=== PATIENT | female | born 1975 | race African-American/Black ===

== ENCOUNTER 2019-10-14 09:00 | Emergency (ER) | payer OTHER ==
[~2019-10-14] VITALS: Ht 167.6 cm; Wt 90.7 kg
[2019-10-14 09:09] VITALS: BP 148/82
--- NOTE | 2019-10-14 09:20 | NUR ---
SEEN AND EXAMINED BY
--- NOTE | 2019-10-14 09:45 | NUR ---
COVID SWAB OBTAINED AND SENT TO LAB.
== END 2019-10-14 09:47 | disposition home or self-care (01) ==
LOC: ER 09:00
DX: U07.1 COVID-19 (principal); J02.8 Acute pharyngitis due to other specified organisms

== ENCOUNTER 2019-10-15 09:35 | Emergency (ER) | payer OTHER ==
[~2019-10-15] VITALS: Ht 167.6 cm; Wt 91.6 kg
[2019-10-15 09:44] VITALS: BP 142/82
--- NOTE | 2019-10-15 09:50 | NUR ---
SEEN AND EXAMINED BY .
--- NOTE | 2019-10-15 10:01 | NUR ---
Patient discharged to home in stable condition. Written and verbal after care instructions given. Patient verbalizes understanding of instruction.
== END 2019-10-15 10:02 | disposition home or self-care (01) ==
LOC: ER 09:35
DX: U07.1 COVID-19 (principal); J06.9 Acute upper respiratory infection, unspecified; L02.31 Cutaneous abscess of buttock

== ENCOUNTER 2022-09-05 10:33 | Emergency (ER) | payer OTHER ==
[~2022-09-05] VITALS: Ht 167.6 cm; Wt 95.3 kg
[2022-09-05 10:46] VITALS: BP 131/90
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
[2022-09-05] MEDS ORDERED: GRIS500T6 PO (11:23)
--- NOTE | 2022-09-05 11:35 | NUR ---
Patient discharged to home in stable condition. Written and verbal after care instructions given. Patient verbalizes understanding of instruction.
== END 2022-09-05 11:36 | disposition home or self-care (01) ==
LOC: ER 10:38
DX: B35.0 Tinea barbae and tinea capitis (principal)

== ENCOUNTER 2023-12-13 08:57 | Emergency (ER) | payer OTHER ==
[~2023-12-13] VITALS: Ht 162.6 cm; Wt 70.3 kg
[~2023-12-13 08:57] MED LIST: GRIS500T6 PO
[2023-12-13] MEDS ORDERED: CEPH-570 PO (09:21)
[2023-12-13 09:38] LABS: PREGNANCY TEST URINE QUAL NEGATIVE (NEGATIVE)
[2023-12-13 09:39] LABS: ADD URINE CULTURE YES; APPEARANCE,URINE CLEAR (CLEAR); BACTERIA,URINE Few /HPF (None Seen); BILIRUBIN,URINE NEGATIVE (NEGATIVE); BLOOD, URINE NEGATIVE Ery/uL (NEGATIVE); COLOR,URINE YELLOW (YELLOW); KETONES,URINE NEGATIVE (NEGATIVE); LEUKOCYTE ESTERASE ,URINE 2+ (NEGATIVE); NITRITE, URINE NEGATIVE (NEGATIVE); PROTEIN,URINE NEGATIVE (NEGATIVE); RBC,URINE 0-2 /HPF (0-2); SQUAMOUS EPITHELIAL CELL,UR Rare /HPF (None Seen); UGLUCOSE NEGATIVE (NEGATIVE); UROBILINOGEN,URINE 0.2 EU/dL (0.2)
[2023-12-13 10:12] VITALS: BP 124/85; TEMP 98.2; O2SAT 100
== END 2023-12-13 10:13 | disposition home or self-care (01) ==
LOC: ER 09:12
DX: N39.0 Urinary tract infection, site not specified (principal); R30.0 Dysuria; R39.15 Urgency of urination; I10 Essential (primary) hypertension; R35.0 Frequency of micturition; E11.9 Type 2 diabetes mellitus without complications; Z88.1 Allergy status to other antibiotic agents
CPT/HCPCS: 81001; 84703-TC; 87086-TC

== ENCOUNTER 2024-01-19 16:10 | Emergency (ER) | payer OTHER ==
[~2024-01-19] VITALS: Ht 167.6 cm; Wt 68.0 kg
[~2024-01-19 16:10] MED LIST changes: +CEPH-570 PO
[2024-01-19 16:34] VITALS: BP 106/78; TEMP 98.6; O2SAT 99
[2024-01-20] MEDS ORDERED: HYDR30CR99 RC (07:19)
[2024-01-20] MEDS ORDERED: PHEN-704 PO (08:33)
== END 2024-01-19 18:10 | disposition left against medical advice (07) ==
LOC: ER 16:18
DX: R07.89 Other chest pain (principal); K64.9 Unspecified hemorrhoids; Z53.21 Procedure and treatment not carried out due to patient leaving prior to being seen by health care provider

== ENCOUNTER 2024-01-20 06:36 | Emergency (ER) | payer OTHER ==
[~2024-01-20] VITALS: Ht 172.7 cm; Wt 79.4 kg
[2024-01-20] MEDS ORDERED: HYDR30CR99 RC (07:19)
[2024-01-20 08:20] LABS: APPEARANCE,URINE CLEAR (CLEAR); BILIRUBIN,URINE NEGATIVE (NEGATIVE); BLOOD, URINE NEGATIVE Ery/uL (NEGATIVE); COLOR,URINE YELLOW (YELLOW); KETONES,URINE NEGATIVE (NEGATIVE); LEUKOCYTE ESTERASE ,URINE NEGATIVE (NEGATIVE); NITRITE, URINE NEGATIVE (NEGATIVE); PREGNANCY TEST URINE QUAL NEGATIVE (NEGATIVE); PROTEIN,URINE NEGATIVE (NEGATIVE); UGLUCOSE NEGATIVE (NEGATIVE); UROBILINOGEN,URINE 0.2 EU/dL (0.2)
[2024-01-20] MEDS ORDERED: PHEN-704 PO (08:33)
[2024-01-20 08:40] VITALS: BP 128/78; TEMP 98.8; O2SAT 99
== END 2024-01-20 08:38 | disposition home or self-care (01) ==
LOC: ER 06:37
DX: K64.8 Other hemorrhoids (principal); R30.0 Dysuria; I10 Essential (primary) hypertension; E11.9 Type 2 diabetes mellitus without complications; Z88.8 Allergy status to other drugs, medicaments and biological substances
CPT/HCPCS: 84703-TC; 87086-TC

== ENCOUNTER 2024-02-12 11:36 | Emergency (ER) | payer OTHER ==
[~2024-02-12] VITALS: Ht 167.6 cm; Wt 65.8 kg
[~2024-02-12 11:36] MED LIST changes: +HYDR30CR99 RC; +PHEN-704 PO
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
--- NOTE | 2024-02-12 16:30 | NUR ---
Patient discharged to home in stable condition. Written and verbal after care instructions given. Patient verbalizes understanding of instruction.
[2024-02-12 17:24] VITALS: BP 120/72; TEMP 98.8; O2SAT 98
== END 2024-02-12 16:30 | disposition home or self-care (01) ==
LOC: ER 11:42
DX: S90.31XA Contusion of right foot, initial encounter (principal); S13.4XXA Sprain of ligaments of cervical spine, initial encounter; I10 Essential (primary) hypertension; E11.9 Type 2 diabetes mellitus without complications; Z88.8 Allergy status to other drugs, medicaments and biological substances; V43.92XA Unspecified car occupant injured in collision with other type car in traffic accident, initial encounter; Y93.89 Activity, other specified; Y92.488 Other paved roadways as the place of occurrence of the external cause; Y99.8 Other external cause status
CPT/HCPCS: 73630-TC

== ENCOUNTER 2024-07-21 15:31 | Emergency (ER) | payer OTHER ==
[~2024-07-21] VITALS: Ht 167.6 cm; Wt 74.4 kg
[2024-07-21] MEDS ORDERED: ASPIRIN 81 MG TAB.CHEW ONE (16:20)
[2024-07-21] MEDS ORDERED: hydrALAZINE HCL IV 20 MG VIAL ONE (16:20)
[2024-07-21] MEDS ORDERED: ASPIRIN EC 81 MG TABLET.DR PO ONE (16:24)
[2024-07-21 16:35] LABS: BASOPHILS # (AUTO) 0.1 K/uL (0.0-0.2); BASOPHILS % (AUTO) 0.7 % (0.0-2.0); EOSINOPHILS # (AUTO) 0.1 K/uL (0.0-0.7); EOSINOPHILS % (AUTO) 0.7 % (0.0-6.0); HEMATOCRIT 37 % (33-45); HEMOGLOBIN 12.7 g/dL (11.5-14.8); LYMPHOCYTES # (AUTO) 1.9 K/uL (0.8-4.8); LYMPHOCYTES % (AUTO) 21.1 % (20.0-44.0); MEAN CORPUSCULAR HEMOGLOBIN 32 PG (26.0-33.0); MEAN CORPUSCULAR HGB CONC 34 g/dl (31.0-36.0); MEAN CORPUSCULAR VOLUME 92 fL (82-100); MONOCYTES # (AUTO) 0.6 K/uL (0.1-1.30); MONOCYTES % (AUTO) 6.6 % (2.0-12.0); NEUTROPHILS # (AUTO) 6.4 K/uL (1.8-8.9); NEUTROPHILS % (AUTO) 70.9 % (43.0-81.0); PLATELET COUNT (AUTO) 365 K/uL (150-450); RED BLOOD CELL COUNT(AUTO) 4.03 MIL/uL (4.0-5.2); RED CELL DISTRIBUTION WIDTH 13.2 % (11.5-15.0)
[2024-07-21] MEDS: ASPIRIN EC 81 MG TABLET.DR PO ONE (16:45)
[2024-07-21 16:46] LABS: CALCIUM, SERUM 9.2 mg/dL (8.5-10.1); CARBON DIOXIDE 30 mmol/L (21-32); CHLORIDE 105 mmol/L (98-107); CREATININE 0.8 mg/dL (0.6-1.3); GLUCOSE 93 mg/dL (74-106); POTASSIUM 4.1 mmol/L (3.5-5.1); SODIUM SERUM 139 mmol/L (136-145); UREA NITROGEN, BLOOD 16 mg/dL (7-18)
[2024-07-21] MEDS: hydrALAZINE HCL IV 20 MG VIAL IV ONE (17:00)
[2024-07-21 17:01] LABS: INR 1.02 (0.91-1.10); PARTIAL THROMBOPLASTIN TIME 25.9 SEC (24.3-34.3); PROTHROMBIN TIME 10.8 SECS (9.2-11.1)
[2024-07-21 17:47] VITALS: BP 140/85; TEMP 98.2; O2SAT 100
== END 2024-07-21 17:47 | disposition home or self-care (01) ==
LOC: ER 15:35
DX: R07.89 Other chest pain (principal); I10 Essential (primary) hypertension; E11.9 Type 2 diabetes mellitus without complications; Z79.899 Other long term (current) drug therapy; Z88.1 Allergy status to other antibiotic agents
CPT/HCPCS: 99285; 96374; 71045; 93005; 85025; 80048; 36415; 84484; 85730; J0360

== ENCOUNTER 2024-07-22 11:54 | Emergency (ER) | payer OTHER ==
[~2024-07-22] VITALS: Ht 167.6 cm; Wt 72.6 kg
[2024-07-22 12:14] VITALS: BP 124/74; TEMP 98.4
[2024-07-22] MEDS ORDERED: IBUPROFEN 400 MG TABLET ONE (12:49)
[2024-07-22] MEDS: IBUPROFEN 400 MG TABLET PO ONE (12:53)
[2024-07-22 13:47] VITALS: O2SAT 99
== END 2024-07-22 13:48 | disposition home or self-care (01) ==
LOC: ER 12:04
DX: R51.9 Headache, unspecified (principal); R53.83 Other fatigue; E11.9 Type 2 diabetes mellitus without complications; I10 Essential (primary) hypertension; Z88.1 Allergy status to other antibiotic agents; Z20.822 Contact with and (suspected) exposure to COVID-19

== ENCOUNTER → 2024-07-22 | Emergency (ER) | payer OTHER ==
[~2024-07-22] VITALS: Ht 167.6 cm; Wt 72.6 kg
[2024-07-22 17:15] VITALS: BP 154/99; TEMP 98.6; O2SAT 99
== END | disposition left against medical advice (07) ==
LOC: ER 18:02
DX: R07.9 Chest pain, unspecified (principal); R51.9 Headache, unspecified; Z53.21 Procedure and treatment not carried out due to patient leaving prior to being seen by health care provider

== ENCOUNTER 2024-08-30 12:08 | Emergency (ER) | payer OTHER ==
[~2024-08-30] VITALS: Ht 167.6 cm; Wt 81.2 kg
[2024-08-30] MEDS: IV NS 0.9% 1,000 ML BAG IV ONE (12:54)
[2024-08-30 12:56] LABS: BASOPHILS # (AUTO) 0.1 K/uL (0.0-0.2); BASOPHILS % (AUTO) 0.8 % (0.0-2.0); EOSINOPHILS % (AUTO) 0.4 % (0.0-6.0); HEMATOCRIT 39 % (33-45); HEMOGLOBIN 13.6 g/dL (11.5-14.8); LYMPHOCYTES # (AUTO) 1.7 K/uL (0.8-4.8); LYMPHOCYTES % (AUTO) 24.1 % (20.0-44.0); MEAN CORPUSCULAR HEMOGLOBIN 31 PG (26.0-33.0); MEAN CORPUSCULAR HGB CONC 35 g/dl (31.0-36.0); MEAN CORPUSCULAR VOLUME 90 fL (82-100); MONOCYTES # (AUTO) 0.5 K/uL (0.1-1.30); MONOCYTES % (AUTO) 6.8 % (2.0-12.0); NEUTROPHILS # (AUTO) 4.7 K/uL (1.8-8.9); NEUTROPHILS % (AUTO) 67.9 % (43.0-81.0); PLATELET COUNT (AUTO) 316 K/uL (150-450); RED BLOOD CELL COUNT(AUTO) 4.35 MIL/uL (4.0-5.2); RED CELL DISTRIBUTION WIDTH 12.6 % (11.5-15.0)
[2024-08-30 13:15] LABS: CALCIUM, SERUM 9.4 mg/dL (8.5-10.1); CARBON DIOXIDE 26 mmol/L (21-32); CHLORIDE 105 mmol/L (98-107); CREATININE 0.9 mg/dL (0.6-1.3); GLUCOSE 89 mg/dL (74-106); POTASSIUM 4.6 mmol/L (3.5-5.1); SODIUM SERUM 139 mmol/L (136-145); UREA NITROGEN, BLOOD 18 mg/dL (7-18)
[2024-08-30 13:19] LABS: MAGNESIUM 2.1 mg/dL (1.8-2.4); PHOSPHORUS 3.6 mg/dL (2.5-4.9)
[2024-08-30 13:21] LABS: ALCOHOL, BLOOD < 3 mg/dL (0-10)
[2024-08-30 13:43] LABS: PREGNANCY TEST URINE QUAL NEGATIVE (NEGATIVE)
[2024-08-30 13:47] LABS: AMPHETAMINE, URINE NEGATIVE (NEGATIVE); BARBITURATE, URINE NEGATIVE (NEGATIVE); BENZODIAZEPINE, URINE NEGATIVE (NEGATIVE); CANNABINOID, URINE NEGATIVE (NEGATIVE); COCCAINE, URINE NEGATIVE (NEGATIVE); OPIATE, URINE NEGATIVE (NEGATIVE); PHENCYCLIDINE SCREEN,URINE NEGATIVE (NEGATIVE)
[2024-08-30 14:50] VITALS: BP 137/80; TEMP 98.4; O2SAT 99
== END 2024-08-30 14:25 | disposition home or self-care (01) ==
LOC: ER 12:13
DX: R53.83 Other fatigue (principal); R53.1 Weakness; R00.0 Tachycardia, unspecified; I10 Essential (primary) hypertension; E11.9 Type 2 diabetes mellitus without complications; Z88.1 Allergy status to other antibiotic agents; Z79.899 Other long term (current) drug therapy
CPT/HCPCS: 99285; 96360; 93005; 71045; 85025; 80048; 83735; 84100; 84703; 36415; 84443; 84484; 80320; 80307; J7030; G0480

== ENCOUNTER 2024-11-06 05:07 | Emergency (ER) | payer OTHER ==
[~2024-11-06] VITALS: Ht 165.1 cm; Wt 74.8 kg
[~2024-11-06 05:07] MED LIST changes: -FLUO20CA36 PO; -GABA300C PO; -LISI20TA30 PO; -TRAZ-182 PO
[2024-11-06 05:24] VITALS: TEMP 98.5
[2024-11-06 06:25] LABS: BASOPHILS # (AUTO) 0.1 K/uL (0.0-0.2); BASOPHILS % (AUTO) 0.6 % (0.0-2.0); EOSINOPHILS % (AUTO) 0.4 % (0.0-6.0); HEMATOCRIT 41 % (33-45); HEMOGLOBIN 13.5 g/dL (11.5-14.8); LYMPHOCYTES % (AUTO) 19.4 % (20.0-44.0); MEAN CORPUSCULAR HEMOGLOBIN 31 PG (26.0-33.0); MEAN CORPUSCULAR HGB CONC 33 g/dl (31.0-36.0); MEAN CORPUSCULAR VOLUME 94 fL (82-100); MONOCYTES # (AUTO) 0.8 K/uL (0.1-1.30); NEUTROPHILS # (AUTO) 7.4 K/uL (1.8-8.9); NEUTROPHILS % (AUTO) 71.6 % (43.0-81.0); PLATELET COUNT (AUTO) 328 K/uL (150-450); RED BLOOD CELL COUNT(AUTO) 4.37 MIL/uL (4.0-5.2); RED CELL DISTRIBUTION WIDTH 13.6 % (11.5-15.0); WHITE BLOOD COUNT (AUTO) 10.4 K/uL (4.3-11.0)
[2024-11-06 06:31] LABS: CALCIUM, SERUM 9.8 mg/dL (8.5-10.1); CARBON DIOXIDE 23 mmol/L (21-32); CHLORIDE 102 mmol/L (98-107); GLUCOSE 121 mg/dL (74-106); POTASSIUM 3.9 mmol/L (3.5-5.1); SODIUM SERUM 136 mmol/L (136-145); UREA NITROGEN, BLOOD 24 mg/dL (7-18)
[2024-11-06 06:43] LABS: ACETAMINOPHEN 26 ug/ml (10-30); ALANINE AMINOTRANSFERASE 62 U/L (12-78); ALCOHOL, BLOOD < 3 mg/dL (0-10); ALKALINE PHOSPHATASE 55 U/L (46-116); ASPARTATE AMINOTRANSFERASE 50 U/L (15-37); BILIRUBIN,DIRECT 0.3 mg/dL (0.0-0.2); BILIRUBIN,TOTAL 1.4 mg/dL (0.2-1.0); SALICYLATE < 10.0 mg/dL (2.8-20.0); TOTAL PROTEIN, SERUM 8.1 g/dL (6.4-8.2)
[2024-11-06 07:01] LABS: APPEARANCE,URINE CLEAR (CLEAR); BILIRUBIN,URINE NEGATIVE (NEGATIVE); BLOOD, URINE NEGATIVE Ery/uL (NEGATIVE); COLOR,URINE YELLOW (YELLOW); KETONES,URINE TRACE mg/dL (NEGATIVE); LEUKOCYTE ESTERASE ,URINE NEGATIVE (NEGATIVE); NITRITE, URINE NEGATIVE (NEGATIVE); PROTEIN,URINE TRACE mg/dl (NEGATIVE); UGLUCOSE NEGATIVE (NEGATIVE); UROBILINOGEN,URINE 0.2 EU/dL (0.2)
[2024-11-06 07:05] LABS: ADD URINE CULTURE NO; BACTERIA,URINE Few /HPF (None Seen); RBC,URINE 0-2 /HPF (0-2)
[2024-11-06 07:21] LABS: AMPHETAMINE, URINE NEGATIVE (NEGATIVE); BARBITURATE, URINE NEGATIVE (NEGATIVE); BENZODIAZEPINE, URINE NEGATIVE (NEGATIVE); CANNABINOID, URINE NEGATIVE (NEGATIVE); COCCAINE, URINE NEGATIVE (NEGATIVE); OPIATE, URINE NEGATIVE (NEGATIVE); PHENCYCLIDINE SCREEN,URINE NEGATIVE (NEGATIVE)
[2024-11-06] MEDS ORDERED: IBUPROFEN 400 MG TABLET ONE (11:16)
[2024-11-06] MEDS: IBUPROFEN 400 MG TABLET PO ONE (11:19)
[2024-11-06 12:56] VITALS: BP 134/70; O2SAT 99
== END 2024-11-06 12:45 ==
LOC: ER 05:09
DX: R45.851 Suicidal ideations (principal); E11.9 Type 2 diabetes mellitus without complications; R10.2 Pelvic and perineal pain; I10 Essential (primary) hypertension; Z88.1 Allergy status to other antibiotic agents; Z20.822 Contact with and (suspected) exposure to COVID-19
CPT/HCPCS: 36415; 80048-TC; 80076-TC; 81001; 82962-TC; 84702-TC; 85025-TC; G0480

== ENCOUNTER → 2024-11-06 | Emergency (ER) | payer OTHER ==
[~2024-11-06] VITALS: Ht 167.6 cm; Wt 81.6 kg
[~2024-11-06] MED LIST changes: +FLUO20CA36 PO; +GABA300C PO; +LISI20TA30 PO; +TRAZ-182 PO
[2024-11-06 17:27] VITALS: TEMP 98.2
[2024-11-06 18:35] VITALS: BP 130/70; O2SAT 99
== END ==
LOC: ER 17:29
DX: F32.A Depression, unspecified (principal); E11.9 Type 2 diabetes mellitus without complications; I10 Essential (primary) hypertension; Z88.1 Allergy status to other antibiotic agents

== ENCOUNTER 2024-11-10 20:52 | Emergency (ER) | payer OTHER ==
[~2024-11-10] VITALS: Ht 172.7 cm; Wt 65.8 kg
[2024-11-10] MEDS ORDERED: FLUO20CA36 PO (22:00)
[2024-11-10] MEDS ORDERED: LISI20TA30 PO (22:00)
[2024-11-10] MEDS ORDERED: GABA300C PO (22:00)
[2024-11-10] MEDS ORDERED: TRAZ-182 PO (22:00)
[2024-11-10 22:22] LABS: PREGNANCY TEST URINE QUAL NEGATIVE (NEGATIVE)
[2024-11-10] MEDS ORDERED: OLANZAPINE ZYDIS 5 MG TAB.RAPDIS ONE ×2 (22:25→22:33)
[2024-11-10] MEDS: OLANZAPINE ZYDIS 5 MG TAB.RAPDIS SL ONE (22:27)
[2024-11-11 01:14] VITALS: BP 135/88; TEMP 98.5; O2SAT 99
== END 2024-11-11 01:15 | disposition home or self-care (01) ==
LOC: ER 21:27
DX: F22 Delusional disorders (principal); E11.9 Type 2 diabetes mellitus without complications; F43.0 Acute stress reaction; I10 Essential (primary) hypertension; Z88.1 Allergy status to other antibiotic agents; Z79.899 Other long term (current) drug therapy
CPT/HCPCS: 70450-TC; 84703-TC

== ENCOUNTER 2025-05-04 13:04 | Emergency (ER) | payer OTHER ==
[~2025-05-04] VITALS: Ht 167.6 cm; Wt 84.4 kg
[~2025-05-04 13:04] MED LIST changes: +FLUO20CA36 PO; +GABA300C PO; +LISI20TA30 PO; +TRAZ-182 PO
[2025-05-04 13:18] VITALS: TEMP 98.8
--- NOTE | 2025-05-04 13:30 | NUR ---
CAROLA GUTIERREZ AT BEDSIDE
--- NOTE | 2025-05-04 13:55 | NUR ---
Patient discharged to home in stable condition. Written and verbal after care instructions given. Patient verbalizes understanding of instruction.
[2025-05-04 13:57] VITALS: BP 150/84; O2SAT 96
== END 2025-05-04 13:55 | disposition home or self-care (01) ==
LOC: ER 13:07
DX: F32.A Depression, unspecified (principal); R51.9 Headache, unspecified; I10 Essential (primary) hypertension; E11.9 Type 2 diabetes mellitus without complications; Z79.899 Other long term (current) drug therapy; Z88.1 Allergy status to other antibiotic agents

== ENCOUNTER 2025-05-06 08:45 | Emergency (ER) | payer OTHER ==
[~2025-05-06] VITALS: Ht 167.6 cm; Wt 84.4 kg
[2025-05-06 09:08] VITALS: BP 139/90; TEMP 98.1; O2SAT 97
[2025-05-06 10:00] LABS: AMPHETAMINE, URINE NEGATIVE (NEGATIVE); BARBITURATE, URINE NEGATIVE (NEGATIVE); BENZODIAZEPINE, URINE NEGATIVE (NEGATIVE); CANNABINOID, URINE NEGATIVE (NEGATIVE); COCCAINE, URINE NEGATIVE (NEGATIVE); OPIATE, URINE NEGATIVE (NEGATIVE)
[2025-05-06 10:06] LABS: ADD URINE CULTURE NO; APPEARANCE,URINE SLIGHTLY CLOUDY (CLEAR); BLOOD, URINE NEGATIVE Ery/uL (NEGATIVE); LEUKOCYTE ESTERASE ,URINE NEGATIVE (NEGATIVE); NITRITE, URINE NEGATIVE (NEGATIVE); SQUAMOUS EPITHELIAL CELL,UR Few /HPF (None Seen); UGLUCOSE NEGATIVE (NEGATIVE)
[2025-05-06 10:22] LABS: PLATELET COUNT (AUTO) 341 K/uL (150-450); RED BLOOD CELL COUNT(AUTO) 4.43 MIL/uL (4.0-5.2); RED CELL DISTRIBUTION WIDTH 14.0 % (11.5-15.0); WHITE BLOOD COUNT (AUTO) 9.5 K/uL (4.3-11.0)
[2025-05-06 10:43] LABS: CALCIUM, SERUM 9.0 mg/dL (8.5-10.1); CREATININE 0.8 mg/dL (0.6-1.3); SODIUM SERUM 140 mmol/L (136-145); UREA NITROGEN, BLOOD 14 mg/dL (7-18)
[2025-05-06 10:58] LABS: ALCOHOL, BLOOD 4 mg/dL (0-10); ASPARTATE AMINOTRANSFERASE 10 U/L (15-37); TOTAL PROTEIN, SERUM 7.9 g/dL (6.4-8.2)
== END 2025-05-06 10:31 | disposition left against medical advice (07) ==
LOC: ER 08:57
DX: F32.A Depression, unspecified (principal); I10 Essential (primary) hypertension; E11.9 Type 2 diabetes mellitus without complications; Z79.899 Other long term (current) drug therapy; Z88.1 Allergy status to other antibiotic agents
CPT/HCPCS: 36415; 80048-TC; 80076-TC; 81001; 84439-TC; 84443-TC; 85025-TC; G0480

== ENCOUNTER 2025-05-09 00:39 | Emergency (ER) | payer OTHER ==
[~2025-05-09] VITALS: Ht 167.6 cm; Wt 84.4 kg
[2025-05-09 00:45] VITALS: TEMP 98.1
[2025-05-09 01:24] LABS: PLATELET COUNT (AUTO) 388 K/uL (150-450); RED BLOOD CELL COUNT(AUTO) 4.58 MIL/uL (4.0-5.2); RED CELL DISTRIBUTION WIDTH 13.8 % (11.5-15.0); WHITE BLOOD COUNT (AUTO) 12.1 K/uL (4.3-11.0)
[2025-05-09 01:31] LABS: CALCIUM, SERUM 9.5 mg/dL (8.5-10.1); CREATININE 1.0 mg/dL (0.6-1.3); SODIUM SERUM 139 mmol/L (136-145); UREA NITROGEN, BLOOD 21 mg/dL (7-18)
[2025-05-09 01:37] LABS: ALCOHOL, BLOOD < 3 mg/dL (0-10); ASPARTATE AMINOTRANSFERASE 13 U/L (15-37); TOTAL PROTEIN, SERUM 8.3 g/dL (6.4-8.2)
[2025-05-09 02:35] LABS: APPEARANCE,URINE CLEAR (CLEAR); BLOOD, URINE NEGATIVE Ery/uL (NEGATIVE); LEUKOCYTE ESTERASE ,URINE NEGATIVE (NEGATIVE); NITRITE, URINE NEGATIVE (NEGATIVE); UGLUCOSE NEGATIVE (NEGATIVE)
[2025-05-09 02:45] LABS: AMPHETAMINE, URINE NEGATIVE (NEGATIVE); BARBITURATE, URINE NEGATIVE (NEGATIVE); BENZODIAZEPINE, URINE NEGATIVE (NEGATIVE); CANNABINOID, URINE NEGATIVE (NEGATIVE); COCCAINE, URINE NEGATIVE (NEGATIVE); OPIATE, URINE NEGATIVE (NEGATIVE)
[2025-05-09] MEDS ORDERED: IBUPROFEN 600 MG TABLET ONE (03:32)
[2025-05-09] MEDS: IBUPROFEN 600 MG TABLET PO ONE (03:40)
[2025-05-09 03:48] LABS: ADD URINE CULTURE NO; SQUAMOUS EPITHELIAL CELL,UR 0-2 /HPF (None Seen)
[2025-05-09] MEDS ORDERED: OLANZAPINE 5 MG TABLET ONE (04:45)
[2025-05-09] MEDS: OLANZAPINE 5 MG TABLET PO ONE (04:48)
[2025-05-09] MEDS ORDERED: OLANZAPINE 10 MG VIAL IM ONE (04:50)
[2025-05-09] MEDS: OLANZAPINE 10 MG VIAL IM ONE (05:01)
[2025-05-09 09:50] VITALS: BP 157/89; O2SAT 99
[2025-05-09] MEDS ORDERED: POTASSIUM CHLORIDE 20 MEQ TAB.PRT.SR PO ONE (09:55)
[2025-05-09] MEDS: POTASSIUM CHLORIDE 20 MEQ TAB.PRT.SR PO ONE (10:02)
== END 2025-05-09 10:15 ==
LOC: ER 00:45
DX: F32.A Depression, unspecified (principal); I10 Essential (primary) hypertension; E11.9 Type 2 diabetes mellitus without complications; Z53.29 Procedure and treatment not carried out because of patient's decision for other reasons; Z79.899 Other long term (current) drug therapy; Z88.1 Allergy status to other antibiotic agents; Z20.822 Contact with and (suspected) exposure to COVID-19
CPT/HCPCS: 99285; 96372; 85025; 80048; 80076; 81001; 36415; 87426; 80143; 80320; 80307; J3490; G0480